=== PATIENT | female | born 1970 | race Caucasian/White ===

== ENCOUNTER 2016-11-28 12:40 | Inpatient (IN) | payer OTHER ==
[~2016-11-28] VITALS: Ht 160 cm; Wt 67.5 kg
[2016-11-28] MEDS ORDERED: VENL50TA44 PO (13:13)
[2016-11-28] MEDS ORDERED: MIRT30 PO (13:13)
[2016-11-28] MEDS ORDERED: BUPR-47 PO (13:13)
[2016-11-28] MEDS ORDERED: QUET200XR PO (13:13)
[2016-11-28] MEDS ORDERED: BUSP10TA23 PO (13:13)
[2016-11-28] MEDS ORDERED: HYD50 PO (13:13)
[2016-11-28 14:15] LABS: EOSINOPHILS % (AUTO) 0 % (1.0-6.0); HEMATOCRIT 28.9 % (36-46); HEMOGLOBIN 10.1 g/dL (12.0-16.0); LYMPHOCYTES # (AUTO) 0.5 K/uL (1.0-4.8); LYMPHOCYTES % (AUTO) 5.3 % (22.0-44.0); MEAN CORPUSCULAR HEMOGLOBIN 31.8 pg (26.0-34.0); MEAN CORPUSCULAR HGB CONC 34.8 G/dL (31.0-37.0); MEAN CORPUSCULAR VOLUME 92 fL (80-100); MONOCYTES # (AUTO) 0.3 K/uL (0.1-1.0); MONOCYTES % (AUTO) 3.4 % (2.0-9.0); NEUTROPHILS # (AUTO) 8.6 K/uL (1.8-7.7); PLATELET COUNT (AUTO) 204 K/uL (150-450); RED BLOOD CELL COUNT(AUTO) 3.16 MIL/uL (4.00-5.20); RED CELL DISTRIBUTION WIDTH 14.8 % (11.5-14.5); WHITE BLOOD COUNT (AUTO) 9.4 K/uL (4.5-11.0)
[2016-11-28 14:16] LABS: NEUTROPHILS % (AUTO) 91.3 % (40.0-70.0)
[2016-11-28 14:31] LABS: SALICYLATE 0.9 mg/dL (2.8-20.0)
[2016-11-28 14:33] LABS: ANION GAP 15 mmol/L (8-16); CALCIUM, TOTAL 7.8 mg/dL (8.8-10.5); CARBON DIOXIDE 20 mmol/L (22-29); CHLORIDE 112 mmol/L (98-107); CREATININE 0.78 mg/dL (0.60-1.30); GLOMERULAR FILTR. RATE CALC > 60 mL/min (>60); POTASSIUM 3.8 mmol/L (3.5-5.1); SODIUM SERUM 147 mmol/L (136-145); UREA NITROGEN, BLOOD 11 mg/dL (7-18)
[2016-11-28 14:36] LABS: INR 1.2 (0.9-1.1); PROTHROMBIN TIME 12.6 SEC (9.4-11.6)
[2016-11-28 14:56] LABS: ALANINE AMINOTRANSFERASE 46 U/L (12-78); ALBUMIN 3.4 g/dL (3.4-5.0); ASPARTATE AMINOTRANSFERASE 41 U/L (15-37); BILIRUBIN,TOTAL 0.4 mg/dL (0.1-1.0); CREATINE KINASE MB 1.8 ng/mL (0-5); CREATINE KINASE, TOTAL 127 U/L (26-192); TOTAL PROTEIN, SERUM 6.5 g/dL (6.4-8.2)
[2016-11-28] MEDS ORDERED: SODIUM CHLORIDE 0.9% 1,000 ML IV ONE ×3 (15:15→16:00)
[2016-11-28 15:43] LABS: APPEARANCE,URINE CLEAR (CLEAR); GLUCOSE, URINE (UA) NEGATIVE (NEGATIVE); KETONES,URINE 15 mg/dL (NEGATIVE); LEUKOCYTE ESTERASE ,URINE NEGATIVE (NEGATIVE); OCCULT BLOOD,URINE NEGATIVE (NEGATIVE); PH,URINE 5.5 (5.0-8.0); PROTEIN,URINE NEGATIVE (NEGATIVE)
[2016-11-28 16:00] LABS: ADD UA MICROSCOPIC YES
[2016-11-28] MEDS ORDERED: LORazepam 2 MG/ML VIAL IVP ONE (16:00)
[2016-11-28] MEDS ORDERED: ONDANSETRON HCL 4 MG/2 ML VIAL IVP PRN ×2 (16:15→21:00)
[2016-11-28] MEDS ORDERED: 0.9% SODIUM CHLORIDE 10 ML SYRINGE IVP PRN (16:15)
[2016-11-28] MEDS ORDERED: ACETAMINOPHEN 325 MG TABLET PO PRN (16:15)
[2016-11-28 16:32] LABS: ACETAMINOPHEN 2 mcg/mL (10-30)
[2016-11-28 17:21] VITALS: BP 128/90
[2016-11-28 18:58] LABS: ALANINE AMINOTRANSFERASE 44 U/L (12-78); ALBUMIN 3.4 g/dL (3.4-5.0); ANION GAP 11 mmol/L (8-16); ASPARTATE AMINOTRANSFERASE 48 U/L (15-37); BILIRUBIN,TOTAL 0.5 mg/dL (0.1-1.0); CALCIUM, TOTAL 7.5 mg/dL (8.8-10.5); CARBON DIOXIDE 22 mmol/L (22-29); CHLORIDE 109 mmol/L (98-107); CREATININE 0.74 mg/dL (0.60-1.30); GLOMERULAR FILTR. RATE CALC > 60 mL/min (>60); POTASSIUM 3.7 mmol/L (3.5-5.1); SODIUM SERUM 142 mmol/L (136-145); TOTAL PROTEIN, SERUM 6.5 g/dL (6.4-8.2); UREA NITROGEN, BLOOD 10 mg/dL (7-18)
[2016-11-28 20:26] VITALS: BP 124/83
[2016-11-28] MEDS ORDERED: LORazepam 2 MG/ML VIAL IVP PRN (21:00)
[2016-11-28] MEDS ORDERED: ALBUTEROL SULFATE 2.5 MG/0.5 ML NEB SOLUTION NEB PRN (21:00)
[2016-11-28] MEDS ORDERED: MAGNESIUM HYDROXIDE SUSPENSION 30 ML UDCUP PO PRN (21:00)
[2016-11-28] MEDS ORDERED: POTASSIUM CHLORIDE 20 MEQ ER TABLET PO PRN (21:15)
[2016-11-28] MEDS ORDERED: MAGNESIUM SULFATE 4 GM/WATER 100 ML IV PRN (21:15)
[2016-11-28] MEDS ORDERED: MAGNESIUM SULFATE 2 GM in DEXTROSE 5%-WATER 50 ML IV PRN (21:15)
[2016-11-28] MEDS: DOCUSATE SODIUM 100 MG CAPSULE PO SCH (21:38)
[2016-11-28] MEDS: SODIUM CHLORIDE 0.9% 1,000 ML IV SCH (21:38)
[2016-11-28 23:31] VITALS: BP 142/89
[2016-11-29] MEDS: MAGNESIUM OXIDE 400 MG TABLET PO PRN ×3 (01:37→08:21)
[2016-11-29 04:34] VITALS: BP 141/88
[2016-11-29] MEDS: SODIUM CHLORIDE 0.9% 1,000 ML IV SCH ×2 (06:49→20:14)
[2016-11-29 06:57] LABS: ALANINE AMINOTRANSFERASE 49 U/L (12-78); ALBUMIN 3.4 g/dL (3.4-5.0); ANION GAP 12 mmol/L (8-16); ASPARTATE AMINOTRANSFERASE 57 U/L (15-37); BILIRUBIN,TOTAL 0.9 mg/dL (0.1-1.0); CALCIUM, TOTAL 8.1 mg/dL (8.8-10.5); CARBON DIOXIDE 23 mmol/L (22-29); CHLORIDE 105 mmol/L (98-107); CREATININE 0.71 mg/dL (0.60-1.30); GLOMERULAR FILTR. RATE CALC > 60 mL/min (>60); SODIUM SERUM 140 mmol/L (136-145); TOTAL PROTEIN, SERUM 6.5 g/dL (6.4-8.2); UREA NITROGEN, BLOOD 6 mg/dL (7-18)
[2016-11-29 07:01] LABS: POTASSIUM 2.7 mmol/L (3.5-5.1)
[2016-11-29 07:29] VITALS: BP 154/90
[2016-11-29] MEDS: PANTOPRAZOLE SODIUM 40 MG DR TABLET PO SCH (08:21)
[2016-11-29] MEDS: DOCUSATE SODIUM 100 MG CAPSULE PO SCH ×2 (08:21→20:14)
[2016-11-29] MEDS: POTASSIUM CHL 10 MEQ/WATER 50 ML IV PRN ×4 (08:22→13:31)
[2016-11-29] MEDS: VENLAFAXINE HCL 150 MG ER CAPSULE PO SCH (11:21)
[2016-11-29] MEDS: ACETAMINOPHEN 325 MG TABLET PO PRN (11:21)
[2016-11-29 11:39] VITALS: BP 135/90
[2016-11-29 15:29] VITALS: BP 145/80
[2016-11-29 19:08] VITALS: BP 140/82
[2016-11-29 23:27] VITALS: BP 121/71
[2016-11-30] MEDS: POTASSIUM CHL 10 MEQ/WATER 50 ML IV PRN ×6 (00:39→12:42)
[2016-11-30 04:13] VITALS: BP 135/91
[2016-11-30] MEDS: SODIUM CHLORIDE 0.9% 1,000 ML IV SCH ×2 (06:13→13:00)
[2016-11-30 06:32] LABS: MAGNESIUM 2.1 mg/dL (1.80-2.40); POTASSIUM 3.6 mmol/L (3.5-5.1)
[2016-11-30 07:28] VITALS: BP 133/76
[2016-11-30] MEDS: PANTOPRAZOLE SODIUM 40 MG DR TABLET PO SCH (08:21)
[2016-11-30] MEDS: VENLAFAXINE HCL 150 MG ER CAPSULE PO SCH (08:21)
[2016-11-30] MEDS: DOCUSATE SODIUM 100 MG CAPSULE PO SCH (08:21)
[2016-11-30 11:20] VITALS: BP 123/91
[2016-11-30] MEDS: ACETAMINOPHEN 325 MG TABLET PO PRN (11:41)
[2016-11-30] MEDS ORDERED: VENL50TA44 PO (15:42)
[2016-11-30 15:43] LABS: BASOPHILS # (AUTO) 0.02 K/uL (0.00-0.20); BASOPHILS % (AUTO) 0.4 % (0.0-2.0); EOSINOPHILS # (AUTO) 0.06 K/uL (0.00-0.70); EOSINOPHILS % (AUTO) 1.37 % (1.0-6.0); HEMATOCRIT 35.9 % (36-46); HEMOGLOBIN 12.4 g/dL (12.0-16.0); LYMPHOCYTES # (AUTO) 1.1 K/uL (1.0-4.8); LYMPHOCYTES % (AUTO) 25.7 % (22.0-44.0); MEAN CORPUSCULAR HEMOGLOBIN 31.7 pg (26.0-34.0); MEAN CORPUSCULAR HGB CONC 34.4 G/dL (31.0-37.0); MEAN CORPUSCULAR VOLUME 92 fL (80-100); MONOCYTES # (AUTO) 0.3 K/uL (0.1-1.0); MONOCYTES % (AUTO) 7.6 % (2.0-9.0); NEUTROPHILS # (AUTO) 2.9 K/uL (1.8-7.7); PLATELET COUNT (AUTO) 169 K/uL (150-450); RED CELL DISTRIBUTION WIDTH 14.2 % (11.5-14.5); WHITE BLOOD COUNT (AUTO) 4.4 K/uL (4.5-11.0)
[2016-11-30 15:53] LABS: ANION GAP 9 mmol/L (8-16); CALCIUM, TOTAL 9.1 mg/dL (8.8-10.5); CARBON DIOXIDE 27 mmol/L (22-29); CHLORIDE 102 mmol/L (98-107); CREATININE 0.71 mg/dL (0.60-1.30); GLOMERULAR FILTR. RATE CALC > 60 mL/min (>60); POTASSIUM 3.9 mmol/L (3.5-5.1); SODIUM SERUM 138 mmol/L (136-145); UREA NITROGEN, BLOOD 5 mg/dL (7-18)
== END 2016-11-30 16:40 | disposition home or self-care (01) | DRG 918 ==
LOC: EMS 12:43 → 5S 16:34
PROVIDERS: ADMIT Internal Medicine; ATTEND Internal Medicine
DX: T50.902A Poisoning by unspecified drugs, medicaments and biological substances, intentional self-harm, initial encounter (principal); F33.2 Major depressive disorder, recurrent severe without psychotic features; D64.9 Anemia, unspecified; E86.0 Dehydration; Z79.899 Other long term (current) drug therapy; Y92.810 Car as the place of occurrence of the external cause
CPT/HCPCS: 83735; 84132; 93005; 96361; 96374; 99291; G0480; G0481; J2060; J3480; J7030